=== PATIENT | female | born 1935 | race Caucasian/White ===

== ENCOUNTER 2016-08-11 15:59 | Inpatient (IN) ==
--- NOTE | 2016-08-11 16:25 | Emergency Department Note ---
Lower Extremity Injury HPI - General Chief Complaint: Extremity Injury, Lower Stated Complaint: fx r hip, transfer from [facility] Seen by Provider: 08/11/16 16:22 Source: patient, family Mode of arrival: EMS Limitations: altered mental status, physical limitation - History of Present Illness HPI Narrative: transfer from [facility] to [facility] for fractured right hip. Dr Aparicio has accepted patient from Dr Maria.pt had fallen 4 days ago. Has dementia.. pain r hip. poor historian - Related Data Home Medications Medication Instructions Recorded Confirmed Budesonide [Entecort] 6 mg PO DAILY 08/11/16 08/11/16 LORazepam [Ativan] 1 mg PO QIDP PRN 08/11/16 08/11/16 QUEtiapine [SEROquel] 100 mg PO HS 08/11/16 08/11/16 Allergies Allergy/AdvReac Type Severity Reaction Status Date / Time Donepezil [From Aricept] Allergy Verified 08/11/16 16:05 Review of Systems Musculoskeletal: Reports: as per HPI, other (pain r hip) Past Medical History - Past Medical History Medical history: Reports: other Surgical history ED: Reports: , other (Appendectomy, tonsillectomy, EGD , colonoscopy,) Family history: Reports: CAD/[place] (mother), other family history (ather COPD) - Social History smoking status: Former smoker Alcohol use: Reports: Occasionally Drug use: Reports: none Physical Exam - General Limitations: altered mental status, physical limitation - Head Head exam: atraumatic - Eye Eye exam: Present: normal appearance, PERRL - ENT ENT exam: normal exam, normal oropharynx, mucous membranes dry - Neck Neck exam: Present: normal inspection, full ROM - Chest Chest inspection: Present: normal inspection, symmetric chest wall rise - Respiratory Respiratory exam: Present: normal lung sounds bilaterally. Absent: respiratory distress, wheezes - Cardiovascular Cardiovascular exam: Present: regular rate, normal rhythm. Absent: bradycardia , tachycardia - Abdominal Exam Abdominal exam: Present: soft. Absent: distention, tenderness, guarding - Back Exam Back exam: Present: normal inspection, full ROM - Neurological Exam Neurological exam: Present: alert, oriented X3, CN II-XII intact - Psychiatric Psychiatric exam: Present: normal affect, normal mood - Skin Skin exam: Present: warm, dry, intact Course Vital Signs Temperature 99.6 F 08/11/16 16:00 Pulse Rate 83 08/11/16 16:00 Respiratory Rate 16 08/11/16 16:00 Temperature 99.6 F 08/11/16 16:00 Pulse Rate 83 08/11/16 16:00 Respiratory Rate 16 08/11/16 16:00 Extremity Injury, Lower - MDM Narrative Medical decision making narrative: Dr barreto has accepted patient from Dr Maria Disposition Clinical Impression: Fracture of right hip Disposition: Xfer As Inpt ([facility]) Condition: Good Referrals: Kisha Montes De Oca MD [Primary Care Provider] -
[2016-08-11] MEDS: 0.9 % SODIUM CHLORIDE 1,000 ML IV SCH (16:38)
[2016-08-11] MEDS ORDERED: 0.9 % SODIUM CHLORIDE 250 ML IV SCH (16:45)
[2016-08-11] MEDS ORDERED: ceFAZolin 1 GM VIAL IV SCH (17:00)
[2016-08-11] MEDS ORDERED: ceFAZolin 1 GM VIAL ONE (17:17)
[2016-08-11] MEDS ORDERED: ACETAMINOPHEN 325 MG TABLET PO PRN (17:25)
[2016-08-11] MEDS ORDERED: POLYETHYLENE GLYCOL 3350 17 GM PACKET PO PRN (17:25)
[2016-08-11] MEDS ORDERED: TRANEXAMIC ACID 1,000 MG/10 ML VIAL IV ONE ×2 (17:25→17:35)
[2016-08-11] MEDS ORDERED: TEMAZEPAM 15 MG CAPSULE PO PRN (17:25)
[2016-08-11] MEDS ORDERED: BISACODYL 10 MG SUPP.RECT PR PRN (17:25)
[2016-08-11] MEDS ORDERED: MAGNESIUM HYDROXIDE 30 ML ORAL.SUSP PO PRN (17:25)
[2016-08-11] MEDS ORDERED: BENZOCAINE/MENTHOL 1 LOZENGE PO PRN ×2 (17:25→18:15)
[2016-08-11] MEDS ORDERED: FLEETS ADULT ENEMA PR PRN (17:25)
[2016-08-11] MEDS ORDERED: ONDANSETRON 4 MG/2 ML VIAL IV PRN ×2 (17:25→18:15)
--- NOTE | 2016-08-11 17:25 | Brief Operative Note ---
Date of procedure: 08/11/16 Pre-op diagnosis: right femoral neck fracture Post-op diagnosis: same Procedure: right hip cemented hemiarthroplasty Grafts/Implants: Yes Anesthesia: GETA Complications: none Complications Description: 08/11/16 17:24 none Surgeon: Justice Stone Timber Killer: Richar Hammer Estimated blood loss (cc): 100 Specimens Removed/Pathology: none sent Condition: stable Disposition: PACU
[2016-08-11] MEDS ORDERED: DEXAMETHASONE 10 MG/ML VIAL IV ONE (17:35)
[2016-08-11] MEDS ORDERED: PROPOFOL 200 MG/20 ML VIAL IV ONE (17:35)
[2016-08-11] MEDS ORDERED: LIDOCAINE HCL/PF 100 MG/5 ML SYRINGE IV ONE (17:35)
[2016-08-11] MEDS ORDERED: ONDANSETRON 4 MG/2 ML VIAL IV ONE (17:35)
[2016-08-11] MEDS ORDERED: fentaNYL 100 MCG/2 ML VIAL IV ONE (17:35)
[2016-08-11] MEDS ORDERED: MIDAZOLAM 5 MG/5 ML VIAL IV ONE (17:35)
--- NOTE | 2016-08-11 17:47 | History and Physical Report ---
DATE OF ADMISSION: 08/11/2016 CHIEF COMPLAINT: Right hip pain. HISTORY OF PRESENT ILLNESS: The patient actually injured this about 3 days ago. On Thursday she fell out of bed and had immediate pain and was unable to ambulate but the family thought she would get better. Since she is quite demented she could not express where she hurt, but today they brought her to [place] where she was diagnosed with a femoral neck fracture with appropriate x-rays. PAST MEDICAL HISTORY: She has a history of dementia, depression, lumbar scoliosis, chronic back pain, anemia, gastritis, hyperlipidemia, hernia and colitis. PAST SURGICAL HISTORY: Appendectomy, tonsillectomy and this history is from her and family. REVIEW OF SYSTEMS: Positive for father who of COPD. Mother had 2 MIs. SOCIAL HISTORY: She has never smoked. No illicit drugs. Lives with her in [place]. She is . REVIEW OF SYSTEMS: Denies any chest pain. PHYSICAL EXAMINATION: GENERAL: Very pleasant elderly female who is alert but demented and unable to give a significant history. LUNGS: Clear to auscultation bilaterally. CARDIOVASCULAR: Regular rate and rhythm. No murmurs, rubs, or gallops. EXTREMITIES: An elderly-appearing female in no acute distress with her eyes closed. Her right leg is shortened and externally rotated and slightly shortened compared to her left leg. She has good color in the foot with ability to move the toes. Normal dorsal pedis pulse. There is some bruising around the hip. IMAGING: X-ray of the right leg demonstrates a femoral neck fracture, displaced with some age-related osteopenia. DIAGNOSIS: Right hip femoral neck fracture. PLAN: Treatment will be a cemented hemiarthroplasty given the fact that she is demented and would not be able to obey weightbearing status. was present and signed consent form for the procedure. [email or web address] Job ID: [id number] Doc ID: [id number] Justice Stone MD
[2016-08-11] MEDS ORDERED: GENTAMICIN SULFATE 800 MG/20 ML VIAL IR ONE (18:00)
[2016-08-11] MEDS ORDERED: LACTATED RINGERS 1,000 ML IV SCH (18:15)
[2016-08-11] MEDS ORDERED: LACTATED RINGERS 250 ML IV PRN (18:15)
[2016-08-11] MEDS ORDERED: METHOCARBAMOL 1,000 MG/10 ML VIAL IV PRN (18:15)
[2016-08-11] MEDS ORDERED: diphenhydrAMINE 50 MG/ML VIAL IV PRN (18:15)
[2016-08-11] MEDS ORDERED: IPRATROPIUM/ALBUTEROL 3 ML AMPUL.NEB NEB PRN (18:15)
[2016-08-11] MEDS ORDERED: fentaNYL 100 MCG/2 ML VIAL IV PRN (18:15)
[2016-08-11] MEDS ORDERED: NALOXONE HCL 0.4 MG/ML VIAL IV PRN (18:15)
[2016-08-11] MEDS ORDERED: PROMETHAZINE 25 MG/ML VIAL IV PRN (18:15)
[2016-08-11] MEDS ORDERED: HYDROmorphone 2 MG/ML SYRINGE IV PRN (18:15)
[2016-08-11] MEDS ORDERED: FLUMAZENIL 0.1 MG/ML ML IV PRN (18:15)
--- NOTE | 2016-08-11 19:26 | XRay Report ---
CLINICAL INFORMATION: Postsurgical follow-up TECHNIQUE: AP pelvis and right hip. Lateral right hip COMPARISON: Preoperative evaluation dated 08/11/2016 FINDINGS: Status post right total hip arthroplasty. Acetabular and femoral head complements are in anatomic positions. There is postsurgical soft tissue and intra-articular gas. IMPRESSION: Right total hip arthroplasty. Interpreted and Authenticated by: Jose Mahajan 08/11/16
[2016-08-11] MEDS ORDERED: METHOCARBAMOL 1,000 MG/10 ML VIAL ONE (19:28)
[2016-08-12] MEDS: 0.9 % SODIUM CHLORIDE 1,000 ML IV SCH ×3 (00:19→07:25)
[2016-08-12] MEDS: 0.45 % SODIUM CHLORIDE 1,000 ML IV SCH ×5 (00:20→19:57)
[2016-08-12] MEDS: KETOROLAC 15 MG/ML VIAL IV PRN ×2 (00:21→20:47)
[2016-08-12] MEDS: ASPIRIN 325 MG ENTERIC COATED TABLET PO SCH ×3 (00:24→20:47)
[2016-08-12] MEDS: SENNOSIDES 1 TABLET PO SCH ×2 (00:31→20:47)
[2016-08-12] MEDS: QUEtiapine 100 MG TABLET PO SCH ×2 (00:31→20:47)
[2016-08-12] MEDS: DOCUSATE SODIUM 100 MG CAPSULE PO SCH ×3 (00:31→20:47)
[2016-08-12] MEDS: HYDROcodone/APAP 5/325MG TABLET PO PRN ×2 (00:31→16:46)
[2016-08-12] MEDS: 0.9 % SODIUM CHLORIDE 10 ML SYRINGE IV SCH ×4 (00:33→20:49)
[2016-08-12] MEDS: ceFAZolin 1 GM VIAL IV SCH ×2 (01:48→09:51)
[2016-08-12] MEDS: BUDESONIDE 3 MG CAP.XL.24H PO SCH (07:27)
--- NOTE | 2016-08-12 07:47 | Orthopedic Progress Note ---
Subjective Patient information: Note initiated : 08/12/16 at 7:45 am Service Date, if different from initiated Date: [] Patient: Joanna Lora 80 y/o F admitted on 08/11/16 for fx r hip, transfer from [facility]. Chief Complaint: [Pt is stable this morning on post operative day 1 without any significant concerns or complaints. Patients vital signs have remained stable. Patients dressing is dry and exhibits a grossly intact neurovascular and neuromotor exam. Patients 10 point ROS is otherwise negative per RN reports as pt is severely demented and won't respond with no change to her baseline function. ] Objective Vital signs: Vital Signs Temp Pulse Resp BP Pulse Ox 08/12/16 04:00 97.0 F L 66 14 100/62 92 08/12/16 00:00 98.2 F 82 16 141/75 96 08/11/16 23:01 89 155/93 98 08/11/16 22:32 98 08/11/16 22:31 98 08/11/16 22:01 76 156/76 99 08/11/16 21:31 76 142/68 98 08/11/16 21:01 91 H 144/73 95 08/11/16 20:46 75 147/84 94 08/11/16 20:31 74 154/81 95 08/11/16 20:16 97.1 F L 72 14 148/76 97 Intake and Output 08/11/16 08/12/16 08/12/16 21:59 05:59 13:59 Intake Total 50 / 50 1000 / 1000 Output Total 525 / 525 Balance -475 / -475 1000 / 1000 Intake: IV 1000 / 1000 Sodium Chloride 0.9% 1, 1000 / 1000 000 ml @ 250 mls/hr IV . Q4H SAUL Rx#:[id number] Oral 50 / 50 Output: Urine Catheter Amount 525 / 525 Other: Weight 138 lb 8 oz Intake & Output: Intake & Output 08/11/16 08/12/16 08/12/16 21:59 05:59 13:59 Intake Total 50 / 50 1000 / 1000 Output Total 525 / 525 Balance -475 / -475 1000 / 1000 Weight 138 lb 8 oz Intake: IV 1000 / 1000 Sodium Chloride 0.9% 1, 1000 / 1000 000 ml @ 250 mls/hr IV . Q4H SAUL Rx#:[id number] Oral 50 / 50 Output: Urine Catheter Amount 525 / 525 Incision clean and dry: Yes Dressing: Yes clean, Yes dry Weight bearing status: full Neurological exam IM: Yes motor sensory intact, Yes neurovascular intact Extremities exam IM: Yes Foot pink and warm, Yes neurovascular intact - Labs CBC & BMP: 08/12/16 05:25 Labs: 08/12/16 05:25 Hct 33.3 L Assessment and Plan (1) Fracture of right hip Patient/ Nursing staff has been educated regarding wound care and dressings, follow up recommendations, and medication use. We will f/u with the patient within 2-3 weeks for wound check. Pt will likely be returning to SNF once cleared by Hospitalist. Hospitalist to continue follow pt medically. Status: Acute
--- NOTE | 2016-08-12 08:29 | Operative Note ---
DATE OF OPERATION: 08/11/2016 PREOPERATIVE DIAGNOSIS: Right femoral neck fracture subcapital. POSTOPERATIVE DIAGNOSIS: Femoral neck fracture on the right side, subcapital. PROCEDURE: Right femoral neck fracture fixed with a cemented hemiarthroplasty, subcapital. SURGEON: Justice Stone MD HYDRO PLANT SITE MANAGER: Richar Hammer PA-C IMPLANTS: A size 5 cemented stem, standard neck length with a dual mobility or bipolar head 46 mm in diameter. COMPLICATIONS: None. ANESTHESIA: General LMA anesthesia. ESTIMATED BLOOD LOSS: About 50 mL DESCRIPTION OF PROCEDURE: The patient was brought to the operating room and put to sleep with general LMA anesthesia. Once asleep, the patient had the right hip sterilely prepped and draped in the usual sterile fashion in a left lateral position. The Enrique positioner was used. The patient was given 1 gram of Ancef and 1 gram of tranexamic acid. Once this was confirmed, we confirmed the operative site. The patient's hip was sterilely prepped and draped in the usual sterile fashion. Posterior superior approach was performed. This was dissected through the muscle layer and identified the tensor fascia and identified the femoral neck and this was incised, released the piriformis obturator internus. We then removed the femoral head using a corkscrew and then removed the ligament flavum from the acetabulum. We irrigated thoroughly. The acetabulum seemed to have good cartilage. We then made the femoral neck cut at 15 mm above the lesser trochanter. We then broached up to the size 5 stem and trialed a size 5 standard neck length 46 mm head. It seemed to fit very nicely, very stable and equal leg lengths. We irrigated thoroughly. We then cemented into place a size 5 stem in 15 degrees of anteversion. Excess cement was removed and then implanted a dual mobility 46 mm ball. This was reduced. This was a bipolar head, very stable through range of motion. We repaired the posterior capsule with #2 FiberWire, irrigated once more and then closed the gluteus tana with #2 Ethibond and #1 Vicryl and closed the skin with 2-0 Vicryl and una superficially. Sterile bandage applied. The patient tolerated this well. [email or web address] Job ID: [id number] Doc ID: [id number] Justice Stone MD
[2016-08-12] MEDS: HYDROmorphone 2 MG/ML SYRINGE IV PRN (21:26)
[2016-08-13] MEDS: 0.45 % SODIUM CHLORIDE 1,000 ML IV SCH ×4 (05:01→22:19)
[2016-08-13] MEDS: 0.9 % SODIUM CHLORIDE 10 ML SYRINGE IV SCH ×2 (05:01→13:24)
[2016-08-13] MEDS: DOCUSATE SODIUM 100 MG CAPSULE PO SCH ×2 (08:30→19:50)
[2016-08-13] MEDS: HYDROcodone/APAP 5/325MG TABLET PO PRN (08:30)
[2016-08-13] MEDS: ASPIRIN 325 MG ENTERIC COATED TABLET PO SCH ×2 (08:30→19:50)
[2016-08-13] MEDS: BUDESONIDE 3 MG CAP.XL.24H PO SCH (09:58)
[2016-08-13] MEDS: KETOROLAC 15 MG/ML VIAL IV PRN (11:58)
[2016-08-13] MEDS: LORazepam 1 MG TABLET PO PRN ×2 (13:12→19:50)
[2016-08-13] MEDS: SENNOSIDES 1 TABLET PO SCH (19:50)
[2016-08-13] MEDS: QUEtiapine 100 MG TABLET PO SCH (19:50)
[2016-08-13] MEDS: HYDROmorphone 2 MG/ML SYRINGE IV PRN (20:47)
[2016-08-14] MEDS: 0.45 % SODIUM CHLORIDE 1,000 ML IV SCH ×3 (00:29→10:25)
[2016-08-14] MEDS: 0.9 % SODIUM CHLORIDE 10 ML SYRINGE IV SCH ×2 (00:29→06:32)
[2016-08-14] MEDS: HYDROcodone/APAP 5/325MG TABLET PO PRN ×2 (07:45→11:16)
--- NOTE | 2016-08-14 07:51 | Orthopedic Progress Note ---
Subjective Patient information: Note initiated : 08/14/16 at 7:50 am Service Date, if different from initiated Date: [] Patient: Joanna Lora 80 y/o F admitted on 08/11/16 for Fracture Right Hip , Transfer from [facility]. Chief Complaint: [severely demented and is breathing well with minimal pain] Objective Vital signs: Vital Signs Temp Pulse Pulse Resp BP Pulse Ox 08/14/16 07:37 98.2 F 88 12 134/64 93 08/14/16 07:23 92 H 12 94 08/14/16 03:48 97.9 F 77 12 111/67 94 08/13/16 23:09 98.8 F 78 12 91/46 91 08/13/16 18:57 98.2 F 96 H 24 149/85 90 08/13/16 16:00 96.7 F L 85 12 146/54 97 08/13/16 12:00 96.7 F L 76 12 139/73 95 Intake and Output 08/13/16 08/14/16 08/14/16 21:59 05:59 13:59 Intake Total 1270 / 1270 1175 / 1175 Output Total 650 / 650 Balance 1270 / 1270 525 / 525 Intake: IV 940 / 940 1000 / 1000 Sodium Chloride 0.45% 1, 940 / 940 1000 / 1000 000 ml @ 100 mls/hr IV . Q10H SAUL Rx#:[id number] Oral 330 / 330 175 / 175 Output: Urine Catheter Amount 650 / 650 Other: Meal Dinner Percent of Meal Consumed 100% Feeding Ability Total Assistance Weight 138 lb 8 oz Intake & Output: Intake & Output 08/13/16 08/14/16 08/14/16 21:59 05:59 13:59 Intake Total 1270 / 1270 1175 / 1175 Output Total 650 / 650 Balance 1270 / 1270 525 / 525 Weight 138 lb 8 oz Intake: IV 940 / 940 1000 / 1000 Sodium Chloride 0.45% 1, 940 / 940 1000 / 1000 000 ml @ 100 mls/hr IV . Q10H SAUL Rx#:[id number] Oral 330 / 330 175 / 175 Output: Urine Catheter Amount 650 / 650 Other: Meal Dinner Percent of Meal Consumed 100% Feeding Ability Total Assistance Incision: Yes healing Incision clean and dry: Yes Dressing: Yes clean Neurological exam IM: Yes altered, Yes motor sensory intact - Labs CBC & BMP: 08/12/16 05:25 Labs: 08/12/16 05:25 Hct 33.3 L
--- NOTE | 2016-08-14 07:59 | Discharge Summary ---
Ortho Discharge - [facility] - Patient Instructions Diet: Regular Diet Activity: activity as tolerated, weight bearing as tolerated Total Hip Protocol: Follow activity instructions as provided by Physical Therapy. Dressing Care: Aquacel Ag - leave on for 5 days Patient Education: Total Hip Replacement (DC) Additional Instructions: Discharge Instructions: Do the exercises at home that physical therapy gave you. Take your prescription, photo ID, insurance cards, and current medication list with you to your first physical therapy appointment. Take your prescription to [facility] any medication or equipment (such as walker, crutches, toilet riser or C.P.M.) Wear comfortable clothing for your physical therapy. Weight bearing as tolerated. If you have the Aquacel Ag dressing, leave in place for 7 days then remove. If dressing becomes soiled (turns black), remove and use gauze 4x4 dressing and silvasorb ointment and change daily. Keep incision clean and dry. If you have Dermabond (a dressing with a mesh-like appearance), leave open to air. You may start showering on post op day #2. The Dermabond dressing can get wet, do not scrub dressing. Pat dry. To avoid constipation while taking any narcotic pain medication, take an over the counter stool softener/laxative. Use ice packs as directed, on for 20 minutes at a time throughout the day. This and elevation will help with pain and swelling. Call your physician for fevers above 100.5 or pain not controlled by medication. Your prescriptions are with your discharge information. Some medications were electronically transmitted to your pharmacy of choice. - Follow Up Plan Follow Up Appointments: Justice Stone MD [Physician] - Kisha Montes De Oca MD [Primary Care Provider] - Disposition: Xfer SNF Prognosis: Good Rehab Potential: Good I certify that the patient requires SNF services: Yes Overall status at discharge: patient is progressing back to baseline
[2016-08-14] MEDS: BUDESONIDE 3 MG CAP.XL.24H PO SCH (09:15)
[2016-08-14] MEDS: DOCUSATE SODIUM 100 MG CAPSULE PO SCH ×2 (09:15→10:57)
[2016-08-14] MEDS: ASPIRIN 325 MG ENTERIC COATED TABLET PO SCH ×2 (09:15→10:57)
--- NOTE | 2016-08-14 12:49 | Discharge Summary ---
DATE OF ADMISSION: 08/11/2016 DATE OF DISCHARGE: DISCHARGING PHYSICIAN: Justice Stone MD HISTORY OF PRESENT ILLNESS: This is an 80-year-old demented female who on Thursday fell out of bed and sustained a right femoral neck hip fracture. She was brought to [facility] and evaluated radiographically where the fracture was initially detected. Dr. Stone was consulted, and the patient was transferred to [facility] thereafter for further operative care. PROCEDURE PERFORMED: Right cemented hemiarthroplasty completed on the date of admission which was 08/11/2016. DATE OF DISCHARGE: 08/14/2016 DISPOSITION: To a snf facility. ADMITTING DIAGNOSIS: Right femoral neck fracture. DISCHARGE DIAGNOSIS: Right femoral neck fracture with a right ace cemented hip arthroplasty. HOSPITAL COURSE: The patient was very demented and was fairly nonresponsive from a verbal communicative standpoint. The nursing staff relayed this to us each day that she remained stable and her exam showed no concerns from her baseline cognitive level of functioning. Hospital course went uneventfully. She was not able to make much headway with physical therapy, but she was able to get up to a chair, but essentially for the most part she did stay bedbound. DISCHARGE INSTRUCTIONS/MEDICATIONS: The patient is discharged to a snf facility. The patient received our standard written discharge instruction sheet. These instructions included information regarding weightbearing status, activity level, diet, wound care, physical therapy instructions, bathing restrictions, shower recommendations, follow-up guidelines, driving restrictions and monitoring the wound for signs of infection that could include but not necessarily to fevers above 101.5, sweats, chills, redness, increased pain or drainage. Should any of these occur the patient was educated to contact our office at once. MEDICATIONS: The patient was restarted on normal primary care medications. Patient was also prescribed [place] 10/325 mg with instructions for 1 to 2 tabs by mouth every 4 to 6 hours as needed for pain, quantity 75 with 2 refills. The patient will be placed on 325 mg aspirin, 1 a day for 30 days post surgery. [facility] will monitor the patient's PT/INR. FOLLOWUP: Patient will follow up at [facility] 2 weeks from surgery for a postop wound check and staple removal. They will be able to certain follow up sooner with any problems or concerns. Dr. Stone provided a provider consultation with Dr. Egan with [facility] to re-accept the patient to their swing bed. BAP:[email or web address] Job ID: [id number] Doc ID: [id number] Richar Hammer PA-C
== END 2016-08-14 12:13 | DRG 470 ==
LOC: ED 15:59 → SUR 17:04 → MEDSUR 20:00
PROVIDERS: ADMIT Orthopaedic Surgery; ATTEND Orthopaedic Surgery
PROC: HEMIHIP (2016-08-11 17:30)